=== PATIENT | male | born 1960 | race Caucasian/White ===

== ENCOUNTER 2021-09-30 10:00 | Day surgery (SDC) | payer MEDICAID, OTHER ==
[2021-09-30] MEDS: Lactated Ringers 1,000 ML IV SCH (10:22)
[2021-09-30] MEDS ORDERED: Midazolam 1 MG/ML 2 ML SDV ONE (12:17)
[2021-09-30] MEDS ORDERED: fentaNYL 100 MCG/2 ML SDV ONE (12:18)
[2021-09-30] MEDS ORDERED: Propofol 200 MG/20 ML SDV ONE (12:18)
== END 2021-09-30 14:10 | disposition home or self-care (01) ==
LOC: VM.SDS 10:00
PROVIDERS: ATTEND Family Medicine
DX: Z12.11 Encounter for screening for malignant neoplasm of colon (principal); D12.0 Benign neoplasm of cecum; D12.2 Benign neoplasm of ascending colon; D12.3 Benign neoplasm of transverse colon; Z78.1 Physical restraint status; E11.9 Type 2 diabetes mellitus without complications; E66.01 Morbid (severe) obesity due to excess calories; Z98.890 Other specified postprocedural states; Z79.899 Other long term (current) drug therapy; Z87.891 Personal history of nicotine dependence; Z68.41 Body mass index [BMI] 40.0-44.9, adult; Z80.0 Family history of malignant neoplasm of digestive organs
CPT/HCPCS: 00811; J2250; J2704; J3010; J7120

== ENCOUNTER 2024-10-03 08:20 | Day surgery (SDC) | payer MEDICARE, OTHER ==
[2024-10-03] MEDS: Lactated Ringers 1,000 ML IV SCH (08:37)
[2024-10-03] MEDS ORDERED: Propofol 200 MG/20 ML SDV ONE ×2 (09:14→10:32)
[2024-10-03] MEDS ORDERED: fentaNYL 100 MCG/2 ML SDV ONE (09:15)
== END 2024-10-03 11:41 | disposition home or self-care (01) ==
LOC: VM.SDS 08:20
PROVIDERS: ATTEND Family Medicine
DX: Z12.11 Encounter for screening for malignant neoplasm of colon (principal); D12.2 Benign neoplasm of ascending colon; D12.3 Benign neoplasm of transverse colon; E11.9 Type 2 diabetes mellitus without complications; E66.01 Morbid (severe) obesity due to excess calories; I10 Essential (primary) hypertension; Z79.899 Other long term (current) drug therapy; Z79.84 Long term (current) use of oral hypoglycemic drugs; Z87.891 Personal history of nicotine dependence; Z68.41 Body mass index [BMI] 40.0-44.9, adult; Z80.0 Family history of malignant neoplasm of digestive organs; Z83.72 Family history of familial adenomatous polyposis; Z86.0101 Personal history of adenomatous and serrated colon polyps
CPT/HCPCS: 00811; 82947; 88305; J2704; J3010; J7120